=== PATIENT | male | born 1930 | race Caucasian/White ===

== ENCOUNTER → 2016-05-08 | Outpatient (CLI) | payer MEDICARE, OTHER | END | disposition home or self-care (01) | LOC: GMAL 12:32 | PROVIDERS: ATTEND Family Medicine | DX: C61 Malignant neoplasm of prostate (principal); Z79.899 Other long term (current) drug therapy; E55.9 Vitamin D deficiency, unspecified; I48.2 Chronic atrial fibrillation; D51.3 Other dietary vitamin B12 deficiency anemia ==

== ENCOUNTER → 2016-10-14 | Outpatient (CLI) | payer MEDICARE, OTHER | END | disposition home or self-care (01) | LOC: GMAL 15:10 | PROVIDERS: ATTEND Family Medicine | DX: J06.9 Acute upper respiratory infection, unspecified (principal); I50.9 Heart failure, unspecified ==

== ENCOUNTER → 2016-10-16 | Outpatient (CLI) | payer MEDICARE, OTHER ==
--- NOTE | 2016-10-19 06:57 | CT ---
Procedure: CT CHEST WITH IV CONTRAST Exam date: 10/16/2016 8:57 AM CDT Ordering Provider: ADRIANE VILLAFUERTE Clinical Indication: NONSPECIFIC ABN FINDING OF LUNG FIELD Comparison: 04/24/2014 Technique: Using a multislice scanner, sequential axial imaging was obtained in the thorax from the level of the thoracic inlet through the lung bases. The exam was obtained with the administration of IV contrast. 2D sagittal and coronal reconstructed images were obtained. This exam was performed according to our departmental dose-optimization program, which includes automated exposure control, adjustment of the mA and/or kV according to patient size and/or use of iterative reconstruction technique. FINDINGS: Scattered calcified granulomas noted. There is also discoid atelectasis in the dependent left lung zone. Otherwise, there are no pulmonary masses or nodules. There is no alveolar or interstitial infiltrate. There are no pleural effusions. Cardiomegaly without pericardial effusion. Prior aortic valve replacement and prior median sternotomy. Aorta and pulmonary arteries are grossly unremarkable. Bullous timing was not sent for pulmonary angiography and segmental or subsegmental pulmonary emboli cannot be excluded. No dissection or aneurysm seen. There is no supraclavicular or axillary lymphadenopathy. There is no mediastinal, hilar, or subcarinal lymphadenopathy. There are no acute skeletal abnormalities. Diffuse thoracic spondylosis. Partially evaluated innumerable bilateral renal cysts. Otherwise, the upper abdomen is nonacute. IMPRESSION 1. Nonacute contrast enhanced CT scan of the chest. 2. Scattered calcified granulomas. 3. Other chronic incidental findings as above. Electronically signed by: Garrett Marinelli MD 10/19/2016 6:56 AM CDT
== END | disposition home or self-care (01) ==
LOC: CT 08:49
PROVIDERS: ATTEND Family Medicine
DX: R91.8 Other nonspecific abnormal finding of lung field (principal)

== ENCOUNTER → 2016-11-24 | Outpatient (CLI) | payer MEDICARE, OTHER | END | disposition home or self-care (01) | LOC: GMAL 11:11 | PROVIDERS: ATTEND Family Medicine | DX: E55.9 Vitamin D deficiency, unspecified (principal) ==

== ENCOUNTER → 2016-11-25 | Outpatient (CLI) | payer MEDICARE, OTHER | END | disposition home or self-care (01) | LOC: GMAL 10:46 | PROVIDERS: ATTEND Family Medicine | DX: R06.02 Shortness of breath (principal) ==

== ENCOUNTER → 2017-05-11 | Outpatient (CLI) | payer OTHER | LOC: GMAL 10:39 | PROVIDERS: ATTEND Family Medicine | DX: Z12.5 Encounter for screening for malignant neoplasm of prostate (principal); E55.9 Vitamin D deficiency, unspecified ==

== ENCOUNTER → 2017-11-10 | Outpatient (CLI) | payer OTHER | LOC: GMAL 10:38 | PROVIDERS: ATTEND Family Medicine | DX: D51.3 Other dietary vitamin B12 deficiency anemia (principal); R53.81 Other malaise ==

== ENCOUNTER → 2018-05-24 | Outpatient (CLI) | payer OTHER | LOC: GMAL 11:49 | PROVIDERS: ATTEND Family Medicine | DX: E55.9 Vitamin D deficiency, unspecified (principal) ==

== ENCOUNTER → 2018-09-19 | Outpatient (CLI) | payer OTHER | LOC: GMAL 17:19 | PROVIDERS: ATTEND Family Medicine | DX: E83.42 Hypomagnesemia (principal); I10 Essential (primary) hypertension ==

== ENCOUNTER → 2018-12-06 | Outpatient (CLI) | payer OTHER | LOC: GMAL 10:47 | PROVIDERS: ATTEND Family Medicine | DX: D51.3 Other dietary vitamin B12 deficiency anemia (principal); R53.81 Other malaise; E55.9 Vitamin D deficiency, unspecified; E78.49 Other hyperlipidemia; I10 Essential (primary) hypertension; I48.20 Chronic atrial fibrillation, unspecified; Z79.899 Other long term (current) drug therapy ==

== ENCOUNTER → 2019-05-29 | Outpatient (CLI) | payer OTHER | LOC: GMAL 17:03 | PROVIDERS: ATTEND Family Medicine | DX: D51.3 Other dietary vitamin B12 deficiency anemia (principal); Z12.5 Encounter for screening for malignant neoplasm of prostate; E55.9 Vitamin D deficiency, unspecified; I10 Essential (primary) hypertension; Z79.899 Other long term (current) drug therapy; E78.49 Other hyperlipidemia; I48.20 Chronic atrial fibrillation, unspecified | CPT/HCPCS: 82306; 82607; G0103 ==

== ENCOUNTER → 2019-06-07 | Outpatient (CLI) | payer OTHER | LOC: GMAL 13:59 | PROVIDERS: ATTEND Family Medicine | DX: I10 Essential (primary) hypertension (principal) ==

== ENCOUNTER → 2020-01-15 | Outpatient (CLI) | payer OTHER | LOC: GMAL 10:44 | PROVIDERS: ATTEND Family Medicine | DX: D51.3 Other dietary vitamin B12 deficiency anemia (principal); E55.9 Vitamin D deficiency, unspecified; R53.83 Other fatigue; Z79.899 Other long term (current) drug therapy; E78.49 Other hyperlipidemia; I48.20 Chronic atrial fibrillation, unspecified ==